=== PATIENT | female | born 1970 | race Caucasian/White ===

== ENCOUNTER 2019-07-07 13:36 | Emergency (ER) | payer BC ==
[~2019-07-07] VITALS: Ht 154.9 cm; Wt 79.4 kg
[2019-07-07] MEDS ORDERED: GABAPENTIN300 MG PO (13:53)
[2019-07-07] MEDS ORDERED: ESCITALOPRAM OX10 MG PO (13:53)
[2019-07-07] MEDS ORDERED: VERAPAMIL ER240 MG PO (13:54)
[2019-07-07] MEDS ORDERED: METOPROLOL SUCC25 MG PO (13:54)
[2019-07-07] MEDS ORDERED: VENLAFAXINE HCL75 M1 PO (13:54)
[2019-07-07] MEDS ORDERED: LISINOPRIL-HCT1 EACH PO (13:54)
[2019-07-07] MEDS ORDERED: NORCO 7.5-3251 EACH PO (14:27)
== END 2019-07-07 15:39 | disposition home or self-care (01) ==
LOC: ED 13:36
DX: S82.841A Displaced bimalleolar fracture of right lower leg, initial encounter for closed fracture (principal); I10 Essential (primary) hypertension; F41.9 Anxiety disorder, unspecified; F17.200 Nicotine dependence, unspecified, uncomplicated; Z79.899 Other long term (current) drug therapy; X58.XXXA Exposure to other specified factors, initial encounter
CPT/HCPCS: 99283-25; A9270

== ENCOUNTER 2019-08-13 09:57 | Day surgery (SDC) | payer BC ==
[~2019-08-13] VITALS: Ht 154.9 cm; Wt 81.7 kg
[~2019-08-13 09:57] MED LIST: DICLOFENAC SODI75 MG PO; ESCITALOPRAM OX10 MG PO; GABAPENTIN300 MG PO; LISINOPRIL-HCT1 EACH PO; METOPROLOL SUCC25 MG PO; NORCO 7.5-3251 EACH PO; OXYCODONE HCL5 MG PO; VENLAFAXINE HCL75 M1 PO; VERAPAMIL ER240 MG PO
[2019-08-13] MEDS ORDERED: TYLENOL EXTRA500 MG PO (10:59)
--- NOTE | 2019-08-13 12:33 | NUR ---
CALL TO DR IQBAL REGARDING LAB RESULTS. HE DEFERS TO ANESTHESIA FOR K+ REPLACEMENT.
--- NOTE | 2019-08-13 14:35 | NUR ---
PATIENT IS LYING ON HER LEFT SIDE, WATCHING TV.
--- NOTE | 2019-08-13 16:21 | NUR ---
STRETCHER REPOSITIONED IN THE ROOM TO ALLOW PATIENT TO SEE THE TV. HOB IS DOWN. PATIENT IS COMPLAINING OF A SORE TAIL BONE. PATIENT REPOSITIONS HERSELF ON HER LEFT SIDE AND AN ADDITIONAL PILLOW IS GIVEN. PATIENT REPORTS "THAT'S MUCH BETTER!"
--- NOTE | 2019-08-13 18:51 | NUR ---
08/13/19 185 [address] Coats [address] PATIENT [address] RECOVERY ROOM. DR. IQBAL ORDERED IV LEVAUQUIN TO BE ADMINSTERED NOW. SONIA AND CAST PADDING TO RIGHT LOWER LEG. C/D/I CMS INTACT. PATIENT AWAKE ON AND OFF. VSS.
--- NOTE | 2019-08-13 19:20 | NUR ---
PT ADMITTED TO ROOM 120 FROM PACU. A/O, ABLE TO SELF SLIDE OVER TO THE BED FROM THE STRETCHER.
--- NOTE | 2019-08-13 20:01 | NUR ---
PATIENT IS SETTLED IN FROM PACU AND IS PAIN FREE AT THIS TIME. HAS ALREADY HAD A GLASS OF COFFEE AND VOIDED. CALL LIGHT IN REACH AND PATIENT DENIES PAIN AT THIS TIME.
--- NOTE | 2019-08-13 21:15 | NUR ---
1PA TO BEDSIDE COMMODE.
--- NOTE | 2019-08-13 22:00 | NUR ---
CALL LIGHT ON. PATIENT CALLED TO USE THE BEDSDIE COMMODE.
--- NOTE | 2019-08-13 22:24 | NUR ---
PATIENT HAVING 7/10 RIGHT LEG PAIN AND 1PO NORCO GIVEN. PATIENT GOING TO TRY AND GET SOME SLEEP NOW. CALL LIGHT IN REACH.
--- NOTE | 2019-08-14 00:30 | NUR ---
PATIENT RESTING QUIETLY EYES CLOSED. RESPIRATONS REGULAR AND EVEN. CALL LIGHT IN REACH.
--- NOTE | 2019-08-14 01:49 | NUR ---
PATIENT GETTING VS NOW WHICH ARE STABLE. CALL LIGHT IN REACH AND NO OTHER NEEDS.
--- NOTE | 2019-08-14 05:04 | NUR ---
PATIENT HAS DONE WELL SINCE SHE HAS COME TO THE FLOOR FROM SURGERY LAST NIGHT. HAS ONLY NEEDED PAIN MEDICATION X2 WHICH APPEARS TO HAVE WORKED WELL FOR HER. CMS TO RIGHT LEG INTACT AND DRESSING IS CDI. PATIENT SAYS SHE REALLY HAS NOT GOT TO SLEEP MUCH AND IS READY TO GET HOME. PLAYING ON HER CELL PHONE AND WATCHING TV AT THIS TIME.
--- NOTE | 2019-08-14 07:06 | OR ---
[facility] [address], [place] [address] Signed DATE OF OPERATION: 08/13/2019 SURGEON: Margarito Morrow MD PREOPERATIVE DIAGNOSIS: Wound dehiscence, medial side, left ankle. POSTOPERATIVE DIAGNOSIS: Wound dehiscence, medial side, left ankle. PROCEDURE PERFORMED: Removal of hardware, I and D, left ankle skin, subcutaneous tissue, and bone. ASSISTANTS: Eugenia Wheatley PA-C. Eugenia was present and critical for all portions of procedure, also ANETTE Menchaca. ANESTHESIA: General. ESTIMATED BLOOD LOSS: 50 mL. TOURNIQUET TIME: Zero. BRIEF HISTORY: This is a 48-year-old female, who suffered a fracture of her ankle and underwent successful open reduction and internal fixation about 3 weeks ago or so. Over the weekend, she was walking on her ankle and noticed a problem on the inside. The wound was noted to be opened up with hardware apparent in the wound. She presented to the office this morning with this complaint and for certain the medial wound had opened up substantially. She was directly admitted to the hospital for surgical I and D, and removal hardware this afternoon. Risks, benefits, and alternatives were discussed with her and she elected to proceed. DESCRIPTION OF PROCEDURE: Once consent was obtained, she was taken to the operating room. After adequate anesthesia, the leg was prepped and draped in a standard sterile fashion. The wound was explored and the fibrinous exudate and debris in the wound were removed sharply. The Electronically Signed By: MARGARITO MORROW MD 08/14/19 0706 PATIENT NAME: RJ CONTRERAS OPERATIVE REPORT DATE OF : 68 REPORT #: [id number] PHYSICIAN: MARGARITO MORROW MD PCP: GRISEL COOK PA-C REPORT IS CONFIDENTIAL AND NOT TO BE RELEASED WITHOUT AUTHORIZATION [facility] [address], [place] [address] Signed wire and screw were easily identifiable and removed. The medial malleolar fragment was significantly fragmented and softened. Because the wound had been open for several days, no further fixation was attempted. We thoroughly debrided the skin edges and all of the soft tissue debris in the wound bed. This was then irrigated using a liter of antibiotic irrigation. The skin edges showed brisk bleeding and they were closed independently using 2-0 nylon in a wound winch configuration. There was good capillary refill of the wound margins at the end of the procedure. We then dressed the wound with a SONIA wound VAC dressing and placed her in a plaster splint. She tolerated the procedure well. All sponge, needle, and instrument counts were correct. Margarito Morrow MD BA/EMMA /[id number] Copies: ~ Electronically Signed By: MARGARITO MORROW MD 08/14/19705 PATIENT NAME: RJ CONTRERAS OPERATIVE REPORT DATE OF : 68 REPORT #: [id number] PHYSICIAN: MARGARITO MORROW MD PCP: GRISEL COOK PA-C REPORT IS CONFIDENTIAL AND NOT TO BE RELEASED WITHOUT AUTHORIZATION
--- NOTE | 2019-08-14 07:15 | NUR ---
report from stacia bedside. pt denies needs.
--- NOTE | 2019-08-14 07:58 | NUR ---
pt amb to br void 300 ml up to ch - ortho and pa here to assess. medicated with toradol and educated about contipation and pain meds. uses crutches well.
[2019-08-14] MEDS ORDERED: LEVOFLOXACIN750 MG PO (08:13)
[2019-08-14] MEDS ORDERED: HYDROCODON-ACE1 EA11 PO (08:13)
--- NOTE | 2019-08-14 08:47 | NUR ---
call to dr bernadette nicole to dc home now. please place order
--- NOTE | 2019-08-14 08:47 | NUR ---
PATIENT UP IN BED. IN ROOM. PATIENT VERY READY TO GO HOME. VITALS AND CALL LIGHT DONE AND CHARTED.
--- NOTE | 2019-08-14 09:00 | NUR ---
In and spoke with Paris Pal. CM initial assessment completed. Pt denies any needs. States she lives with spouse and son and they will asssit her. She has a scooter and crutches. She also states she has sisters who will be assisting her. Pt denies needs or concerns for dc.
--- NOTE | 2019-08-14 09:13 | NUR ---
pt dc inst. given verbal and printed by this rn and pharmacy. eliseo has new rx. iv dc wnl. pt denies needs.
--- NOTE | 2019-08-14 09:23 | NUR ---
MED REC COMPLETE
== END 2019-08-14 09:13 | disposition home or self-care (01) ==
LOC: DS 09:57 → MS 19:09 → DS 08-14 09:13
PROVIDERS: Specialist
PROC: 0SPG0JZ Removal of Synthetic Substitute from Left Ankle Joint, Open Approach (ICD-10-PCS; principal; 2019-08-13 11:15)
DX: T81.32XA Disruption of internal operation (surgical) wound, not elsewhere classified, initial encounter (principal); F17.210 Nicotine dependence, cigarettes, uncomplicated; Z79.899 Other long term (current) drug therapy; Z98.890 Other specified postprocedural states
CPT/HCPCS: 01480; 36415; 64447; 76942; 80048; 84703; 85025; A9270; C9803; J0690; J1100; J1170; J1885; J1956; J2001; J2405; J2704; J2795; J3010; J3480; J7060; J7121; U0002